=== PATIENT | male | born 1965 | race Caucasian/White ===

== ENCOUNTER → 2016-12-16 | Outpatient (CLI) | payer OTHER ==
[2013-06-30 11:43] VITALS: BP 122/79
[2016-12-16 08:24] LABS: BASOPHILS # (AUTO) 0.1 X10^3/uL (0.0-0.1); BASOPHILS % (AUTO) 0.9 % (0.2-1.0); EOSINOPHILS # (AUTO) 0.1 x10^3/uL (0.0-0.2); EOSINOPHILS % (AUTO) 1.6 % (0.9-2.9); HEMATOCRIT 41.6 % (42.0-54.0); HEMOGLOBIN 14.9 g/dL (13.5-18.0); MEAN CORPUSCULAR HEMOGLOBIN 32.1 pg (27.0-34.0); MEAN CORPUSCULAR HGB CONC 35.8 g/dL (33.0-35.0); MEAN CORPUSCULAR VOLUME 89.6 fL (80.0-100.0); MEAN PLATELET VOLUME 7.3 fL (7.4-11.0); MONOCYTES # (AUTO) 0.5 x10^3/uL (0.3-0.8); MONOCYTES % (AUTO) 7.4 % (0.0-13.0); NEUTROPHILS # (AUTO) 4.2 x10^3/uL (2.2-4.8); NEUTROPHILS % (AUTO) 61.1 % (42.0-75.0); PLATELET COUNT 362 X10^3/uL (150.0-450.0); RED BLOOD COUNT 4.64 X10^6/uL (4.7-6.0); RED CELL DISTRIBUTION WIDTH 12.5 % (11.6-16.5); WHITE BLOOD COUNT 6.9 X10^3/uL (3.6-10.0)
[2016-12-16 08:32] LABS: ALANINE AMINOTRANSFERASE 51 Units/L (12-78); ALBUMIN 4.2 g/dL (3.4-5.0); ALKALINE PHOSPHATASE 77 Units/L (46-116); ASPARTATE AMINO TRANSFERASE 20 Units/L (15-37); BILIRUBIN,DIRECT 0.09 mg/dL (0-0.2); BLOOD UREA NITROGEN 20 mg/dL (7-18); CALCIUM 9.2 mg/dL (8.5-10.1); CARBON DIOXIDE 28.3 mmol/L (21-32); CHLORIDE 105 mmol/L (98-107); CREATININE 1.15 mg/dL (0.70-1.30); GLUCOSE 104 mg/dL (65-99); SODIUM 141 mmol/L (136-145); TOTAL PROTEIN 8.2 g/dL (6.4-8.2); eGFR BLACK RACES > 60 (>60); eGFR NON BLACK RACES > 60 (>60)
== END ==
LOC: LAB 07:46
PROVIDERS: ATTEND Pain Medicine Pain Medicine
DX: Z79.891 Long term (current) use of opiate analgesic (principal); M51.16 Intervertebral disc disorders with radiculopathy, lumbar region; M51.06 Intervertebral disc disorders with myelopathy, lumbar region
CPT/HCPCS: 36415; 80048; 80076; 84403; 85025